=== PATIENT | male | born 1965 ===

== ENCOUNTER 2024-07-07 08:33 | Emergency (ER) | payer SELFPAY ==
[~2024-07-07] VITALS: Ht 175.3 cm; Wt 79.4 kg
[2024-07-07] MEDS ORDERED: STEROID (08:45)
[2024-07-07] MEDS ORDERED: Norco 5-325 Ta1 EACH (08:45)
[2024-07-07] MEDS ORDERED: LORazepam 2 MG/ML 1ML Injection IV ONE (09:00)
[2024-07-07] MEDS ORDERED: Droperidol 5 mg/2 ml Vial IV ONE ×2 (09:05→11:45)
[2024-07-07 09:08] LABS: BASOPHILS ABSOLUTE AUTO 0.03 K/mm3 (0.00-0.23); BASOPHILS PERCENT AUTO 0 % (0-2); EOSINOPHILS ABSOLUTE AUTO 0.08 K/mm3 (0.00-0.68); EOSINOPHILS PERCENT AUTO 1 % (0-6); Hematocrit 39.4 % (37.0-53.0); Hemoglobin 13.7 g/dL (13.5-17.5); IMMATURE GRAN ABSOLUTE AUTO 0.05 K/mm3 (0.00-0.10); IMMATURE GRAN PERCENT AUTO 1 % (0-1); LYMPHOCYTES ABSOLUTE AUTO 1.78 K/mm3 (0.84-5.20); LYMPHOCYTES PERCENT AUTO 21 % (21-46); MONOCYTES ABSOLUTE AUTO 1.15 K/mm3 (0.16-1.47); MONOCYTES PERCENT AUTO 13 % (4-13); Mean Corpuscular HGB 32.8 pg (26.0-34.0); Mean Corpuscular HGB Conc 34.8 g/dL (31.5-36.5); Mean Corpuscular Volume 94 fL (80-100); Mean Platelet Volume 8.6 fL (9.1-12.4); NEUTROPHILS ABSOLUTE AUTO 5.59 K/mm3 (1.96-9.15); NEUTROPHILS PERCENT AUTO 65 % (41-73); Platelet Count 327 K/mm3 (150-400); RDW Coefficient Variation 12.8 % (11.7-14.2); RDW Standard Deviation 44.7 fL (35.1-46.3); Red Blood Cell Count 4.18 M/mm3 (4.30-5.90); White Blood Cell Count 8.68 K/mm3 (4.00-11.30)
[2024-07-07 09:25] LABS: Albumin/Globulin Ratio 1.3 (0.8-1.8); Bilirubin, Total 0.2 mg/dL (0.1-1.0); Bun/Creatinine Ratio 25.5 (12.0-20.0); Calcium, Blood 9.3 mg/dL (8.5-10.1); Creatinine, Blood 1.1 mg/dL (0.60-1.20); Globulin, Blood 3.1 g/dL (2.2-4.0); Potassium, Blood 3.8 mmol/L (3.5-5.5); Total Protein, Blood 7.1 g/dL (6.4-8.2)
[2024-07-07] MEDS ORDERED: NS 1,000 ML IV SCH ×4 (11:00→15:30)
[2024-07-07 14:39] LABS: U Amphetamine Screen DETECTED; U Benzodiazapine Screen DETECTED; U Methamphetamine Screen DETECTED
[2024-07-07 14:40] LABS: U Barbituate Screen Not Detected; U Buprenorphine Screen Not Detected; U Cannabinoids Screen DETECTED; U Cocaine Screen Not Detected; U Methadone Screen Not Detected; U Opiates Screen DETECTED; U Oxycodone Screen Not Detected; U Phencyclidine Screen Not Detected
[2024-07-07] MEDS ORDERED: Naloxone HCl 0.4MG / ML 1ML Vial IV ONE (15:30)
[2024-07-07] MEDS ORDERED: Naloxone HCl 1MG / ML 2ML SYR IV ONE (17:00)
== END 2024-07-07 18:44 | disposition home or self-care (01) ==
LOC: ER 08:33
PROVIDERS: Physician Assistant
DX: T43.651A Poisoning by methamphetamines accidental (unintentional), initial encounter (principal); T43.621A Poisoning by amphetamines, accidental (unintentional), initial encounter; T42.4X1A Poisoning by benzodiazepines, accidental (unintentional), initial encounter
CPT/HCPCS: 51701; 80053; 80320; 85025; 93005; 93010; 96361; 96374; 96375; 96376; 99284-25; J1790; J2060; J2310; J7030